=== PATIENT | male | born 1960 | race Hispanic/Latino ===

== ENCOUNTER 2018-12-09 20:59 | Inpatient (IN) | payer SELFPAY ==
--- NOTE | 2018-12-09 21:23 | RAD ---
FExam: Portable chest Provided clinical history: Chest pain and shortness of breath FINDINGS: Cardiac and mediastinal silhouette is within normal limits. No focal consolidation, pleural fluid or pneumothorax evident. Mild prominence of the pulmonary vasculature. IMPRESSION: Prominence of the pulmonary vasculature. Correlate with concerns for congestive failure.
[2018-12-09 21:30] LABS: #Basophils 0.1 thou/uL (0.0-0.2); #Eosinphils 0.3 thou/uL (0.0-0.7); #Lymphocytes 2.2 thou/uL (1.20-3.40); #Monocytes 0.8 thou/uL (0.11-0.59); #Neutrophils 5.4 thou/uL (1.40-6.50); %Basophils 1.4 % (0.0-1.0); %Eosinophils 3.8 % (0.0-10.0); %Lymphocytes 24.6 % (21.0-51.0); %Monocytes 9.1 % (0.0-10.0); %Neutrophils 61.1 % (42.0-75.0); Hemoglobin 13.7 g/dL (14.0-18.0); Mean Corpuscular HGB CONC 34.3 g/dL (32.0-36.0); Mean Corpuscular Hemoglobin 31.2 pg (27.0-31.0); Mean Corpuscular Volume 90.9 fL (78.0-98.0); Mean Platelet Volume 7.7 fL (7.4-10.4); Platelet Count 277 thou/uL (130-400); RBC Distribution Width 12.1 % (11.5-14.5); Red Blood Cell (RBC) Count 4.38 mill/uL (4.70-6.10); White Blood Cell (WBC) Count 8.8 thou/uL (4.8-10.8)
[2018-12-09] MEDS ORDERED: Magnesium 2 GM/50 ML BAG (IN WATER) ONE (21:33)
[2018-12-09] MEDS ORDERED: Diltiazem 125 MG/25 ML ONE (21:33)
[2018-12-09 21:52] LABS: ALT (SGPT) 33 U/L (8-55); AST (SGOT) 30 U/L (5-34); Albumin 4.3 g/dL (3.5-5.0); Alkaline Phosphatase 76 U/L (40-150); Anion Gap 12 mmol/L (10-20); BUN (Urea Nitrogen) 15 mg/dL (8.4-25.7); Bilirubin, Total 1.2 mg/dL (0.2-1.2); Calc. Creatinine Clearance 0 mL/min (70-130); Calcium 9.3 mg/dL (7.8-10.44); Carbon Dioxide 27 mmol/L (22-29); Chloride 104 mmol/L (98-107); Estimated GFR-MDRD 87; Globulin 3.3 g/dL (2.4-3.5); Glucose 98 mg/dL (70-105); Potassium 3.8 mmol/L (3.5-5.1); Protein, Total 7.6 g/dL (6.0-8.3); Sodium 139 mmol/L (136-145)
[2018-12-09 22:42] LABS: CK (CPK) 585 U/L (30-200); Lipase 12 U/L (8-78)
[2018-12-10 01:08] LABS: Troponin I Less than 0.010 ng/mL (< 0.028)
[2018-12-10 02:37] VITALS: BMI 32.1
[2018-12-10] MEDS ORDERED: Ondansetron PF 4 MG/2 ML Vial IVP PRN (04:04)
[2018-12-10] MEDS ORDERED: Ondansetron ODT 4 MG TAB SL PRN (04:04)
[2018-12-10] MEDS ORDERED: Sodium Chloride 0.9% 1,000 ML IV SCH (04:15)
[2018-12-10] MEDS ORDERED: Aspirin 325 MG TAB PO SCH (04:15)
[2018-12-10 04:18] LABS: Troponin I Less than 0.010 ng/mL (< 0.028)
[2018-12-10] MEDS ORDERED: Ibuprofen 200 MG TAB PO PRN (06:14)
[2018-12-10] MEDS ORDERED: Guaifenesin DM 100-10/5 ML UDCUP PO PRN (11:37)
--- NOTE | 2018-12-10 13:47 | HP ---
REASON FOR ADMISSION: Atrial fibrillation/flutter with RVR. HISTORY OF PRESENTING ILLNESS: The patient gives history of working yesterday afternoon and developing palpitations. He has known history of atrial fibrillation and has had prior ablation done 6 years back. He has had recurrence from last 4 years off and on at least 3 times now. 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 He took 80 of sotalol and an extra dose of Lopressor, in spite of which the patient was still having palpitations. He checked his blood pressure. It was high and the monitor was saying that he is in atrial fibrillation. He told his brother who was working with him and finally made it to the emergency room. He has no complaints of chest pain or shortness of breath. He normally lives in [place] and has come to [place] for 6 weeks of work. No complaints of fever, cough, or expectoration. PAST MEDICAL AND SURGICAL HISTORY: History of prior atrial fibrillation with ablation done 6 years back in [place], [place], history of angiogram done 10 years back with a stent placed that again in [place], [place] by Dr. Baum, dyslipidemia, and hypertension. CURRENT MEDICATIONS: The patient takes, 1. Hydrochlorothiazide 12.5 mg p.o. daily. 2. Doxazosin 1 mg p.o. daily. 3. Nifedipine XL 90 mg p.o. at bedtime. 4. Atorvastatin 10 mg p.o. daily. 5. Lopressor 25 mg twice daily. 6. Diclofenac 75 mg daily p.r.n. 7. Clonidine 0.1 mg p.o. twice daily. 8. Losartan 100 mg p.o. at bedtime. 9. He also takes sotalol 80 mg and an extra dose of Lopressor 25 mg on a p.r.n. basis for palpitations. ALLERGIES: NO KNOWN DRUG ALLERGIES. PERSONAL HISTORY: Does not abuse alcohol or drugs. No history of smoking. FAMILY HISTORY: Mother is living and has had history of stroke. Father at the age of 88 years, he has had history of atrial fibrillation. CODE STATUS: Full. SOCIAL HISTORY: Power of regulatory attorney is his brother. The patient is single. REVIEW OF SYSTEMS: CONSTITUTIONAL: Negative for weight loss or gain, ability to conduct usual activities. SKIN: Negative for rash, itching. EYES: Negative for double vision, pain. ENT/MOUTH: Negative for nose bleeding, neck stiffness, pain, tenderness. CARDIOVASCULAR: Negative for palpitations, dyspnea on exertion, orthopnea. RESPIRATORY: Negative for shortness of breath, wheezing, cough, hemoptysis, fever or night sweats. GASTROINTESTINAL: Negative for poor appetite, abdominal pain, heartburn, nausea , vomiting, constipation, or diarrhea. GENITOURINARY: Negative for urgency, frequency, dysuria, nocturia. MUSCULOSKELETAL: Negative for pain, swelling. NEUROLOGIC/PSYCHIATRIC: Negative for anxiety, depression. ALLERGY/IMMUNOLOGIC: Negative for skin rash, bleeding tendency. PHYSICAL EXAMINATION: GENERAL: The patient is a 58-year-old male, who is currently not in any acute distress. VITAL SIGNS: Blood pressure 146/106, pulse 120 per minute, respiratory rate 18 per minute, temperature 97.8 degrees Fahrenheit, saturating 98% on room air. NECK: Supple. No elevated JVD. HEENT: Eyes; extraocular muscles intact. Pupils reacting to light. Oral cavity, mucous membranes are moist. No exudates or congestion. CARDIOVASCULAR SYSTEM: S1, S2 heard. regular rhythm. RESPIRATORY SYSTEM: Air entry, 1+ bilateral. No rales or rhonchi. ABDOMEN: Soft. Bowel sounds heard. No tenderness, rigidity, or guarding. EXTREMITIES: No peripheral edema or calf tenderness. The patient has mild tenderness on the right foot on the lateral aspect and on the mid forefoot on the plantar aspect. Range of motion is normal. Peripheral pulses are good in the right foot. Capillary refill is good. No delay. CENTRAL NERVOUS SYSTEM: No gross focal motor deficits noted. The patient is alert, awake and oriented well. PSYCHIATRIC SYSTEM: The patient's mood is euthymic. No hallucinations or delusions. LABORATORY DATA: Chest x-ray done shows mild pulmonary vascular congestion. Troponin x3 is negative. CK levels 585. BNP 163. Albumin 4.3, BUN 15, creatinine 0.8. Electrolytes stable. Liver enzymes are within normal limits. H and H 13 and 39, platelet count 277, white count of 8.8 with 61% neutrophils. EKG done shows atrial flutter at 123 beats per minute. CLINICAL IMPRESSION AND PLAN: The patient will be admitted to telemetry for atrial flutter with rates going up to 120s. We will continue him on sotalol 80 mg p.o. twice daily, Procardia XL 90 mg daily and Lopressor 50 mg twice daily. He will also be on Lovenox 100 mg q.12 hourly and continue his doxazosin and atorvastatin. His blood pressure will be closely monitored in view of multiple AV conrado blockers that have been instituted now. We will have echo with 2D Doppler for LV function. I have spoken to Dr. Carrero and Dr. Lopez for Cardiology and Electrophysiology consultations. Job ID: [id number] [facility]
[2018-12-10] MEDS: Acetaminophen 325 MG TAB PO PRN (14:17)
--- NOTE | 2018-12-10 15:37 | CON ---
DATE OF CONSULTATION: 12/10/2018 HISTORY: Ced Virgen is a 58-year-old male from [place], [place] with a history of atrial fibrillation radiofrequency ablation 2 years ago. He states that 9 years ago he had a coronary stent placed after an abnormal stress test. He then started having episodes of tachycardia and underwent radiofrequency ablation by Dr. Culver in [place]. He states that he did well for approximately a year, but then 4 to 5 months ago began to notice episodes of rapid heartbeat. These would typically last seconds and then spontaneously resolved. He was given sotalol 80 mg to take on a p.r.n. basis. 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 He had slight left-sided chest pressure. He did not have his sotalol with him at that time. This started at approximately 1 p.m. He then when he got back to his apartment took the sotalol at 7 or 8 p.m. His rapid heart rate continued, and he came to the emergency room. In the emergency room, he was given magnesium sulfate, diltiazem 20 mg IV, and 500 mL of saline. He has continued to be in atrial flutter at this time. He currently is not taking anticoagulation, but he did take Xarelto 20 mg daily in the past; however, this was stopped after his ablation. PAST MEDICAL HISTORY: Hypertension and hypercholesterolemia. No history of diabetes. MEDICATIONS: 1. Sotalol 80 mg p.r.n. 2. Atorvastatin 10 mg daily. 3. Clonidine 0.1 mg b.i.d. 4. Diclofenac 75 mg b.i.d. 5. Cardura 1 mg at bedtime. 6. Hydrochlorothiazide 25 daily. 7. Losartan 100 mg at bedtime. 8. Metoprolol 50 b.i.d. 9. Nifedipine 90 mg b.i.d. ALLERGIES: NONE. OPERATIONS: Coronary artery stent placement and atrial fibrillation radiofrequency ablation. SOCIAL HISTORY: He does not smoke or drink. FAMILY HISTORY: Father had myocardial infarction. REVIEW OF SYSTEMS: Ten-point review of systems is otherwise unremarkable. PHYSICAL EXAMINATION: VITAL SIGNS: Blood pressure of 159/122, pulse of 114. HEENT: PERRL. NECK: Supple. CHEST: Clear. CARDIAC: S1 and S2 normal without any S3, S4, or murmurs. Carotid upstrokes normal without bruits. ABDOMEN: Normal bowel sounds without tenderness or organomegaly. EXTREMITIES: Revealed no clubbing, cyanosis, or edema. NEUROLOGICAL: Grossly intact. SKIN: Warm and dry. IMAGING STUDIES: EKG on admission revealed atrial fibrillation. Subsequent EKG appeared to be more consistent with flutter with a rate of 92 per minute. At the present time, he is in a very regular tachycardia approximately 115 to 120 per minute. LABORATORY DATA: Hemoglobin 13.7, hematocrit 39.8, white count 8800 platelets 277,000. D-dimer less than 0.27. Sodium 139, potassium 3.8, chloride 104, carbon dioxide 27, BUN 15, and creatinine 0.89. BNP 163.1. Troponin I x3 is less than 0.010. IMPRESSION: 1. Recurrence of atrial fibrillation, but it now appears that he is in atrial flutter. 2. History of coronary artery stent placement. 3. Hypertension, poorly controlled. 4. Diabetes. 5. Hypercholesterolemia. 6. Positive family history. PLAN: The patient currently is being anticoagulated with Lovenox 1 mg/kg b.i.d. Echocardiogram will be performed to assess left ventricular function. Electrophysiology will be consulted for consideration of ablation of his atrial flutter. He certainly should be on anticoagulation from this point going forward. Job ID: [id number] [facility]
[2018-12-10 17:02] LABS: #Basophils 0.1 thou/uL (0.0-0.2); #Eosinphils 0.3 thou/uL (0.0-0.7); #Neutrophils 7.3 thou/uL (1.40-6.50); %Eosinophils 3.2 % (0.0-10.0); %Lymphocytes 18.1 % (21.0-51.0); %Monocytes 9.4 % (0.0-10.0); %Neutrophils 68.2 % (42.0-75.0); Hemoglobin 14.1 g/dL (14.0-18.0); Mean Corpuscular HGB CONC 33.8 g/dL (32.0-36.0); Mean Corpuscular Hemoglobin 30.7 pg (27.0-31.0); Mean Platelet Volume 7.7 fL (7.4-10.4); Platelet Count 288 thou/uL (130-400); RBC Distribution Width 12.1 % (11.5-14.5); White Blood Cell (WBC) Count 10.7 thou/uL (4.8-10.8)
[2018-12-10 17:14] LABS: Anion Gap 11 mmol/L (10-20); BUN (Urea Nitrogen) 17 mg/dL (8.4-25.7); Calc. Creatinine Clearance 134 mL/min (70-130); Calcium 9.3 mg/dL (7.8-10.44); Carbon Dioxide 27 mmol/L (22-29); Chloride 104 mmol/L (98-107); Estimated GFR-MDRD Greater than 90; Glucose 105 mg/dL (70-105); Potassium 3.4 mmol/L (3.5-5.1); Sodium 139 mmol/L (136-145)
[2018-12-10] MEDS: Rivaroxaban 10 MG TAB PO SCH (17:20)
[2018-12-10] MEDS ORDERED: NIFEdipine XL 90 MG TAB PO SCH (21:00)
[2018-12-10] MEDS ORDERED: Enoxaparin Sodium 100 MG/ML SYRINGE SC SCH (21:00)
[2018-12-10] MEDS: Losartan 25 MG TAB PO SCH (21:34)
[2018-12-10] MEDS: Famotidine 20 MG TAB PO SCH (21:34)
[2018-12-10] MEDS: Doxazosin Mesylate 1 MG TAB PO SCH (21:34)
[2018-12-10] MEDS: Sotalol HCl 80 MG TAB PO SCH (21:34)
--- NOTE | 2018-12-10 22:16 | CON ---
DATE OF CONSULTATION: 12/10/2018 REASON FOR CONSULTATION: Atrial fibrillation. REFERRING PHYSICIAN: Glenn Carrero MD. HISTORY OF PRESENT ILLNESS: Mr. Virgen is a pleasant 58-year-old gentleman from [place], [place]. He has a history of atrial fibrillation with a radiofrequency ablation approximately 7 years ago with one of my associate, Dr. Culver who is now based out of [place]. He also endorses that 9 years ago, he had a left heart catheterization with a stent placed. Since the time of his ablation, he has been taken off anticoagulation and has been using [id number] method with 80 mg of sotalol for any palpitations and heart racing he has been having. He reports that initially he did well postablation, but over the past of couple months, he began to notice episodes of brief but rapid heart racing. At one point, he woke in the night, noticed heart racing, took a dose of metoprolol, went back to bed with full resolution of the heart racing. Prior to admitting to the hospital, he was working in [place] and was noticing some heart racing, palpitations with some associated left-sided chest pressure. He did not have the sotalol with him, but when he got home, to his temporary lodging, he took a dose of sotalol around 7 or eight o'clock at night, but continued to have heart racing and palpitations. He attempted to take his blood pressure with his home cuff, which gave him an error message and made him concerned, so he went to the emergency room where he was found to be in atrial flutter with RVR. He was given IV diltiazem, which slowed him, but unsure if it chemically converted him or not. REVIEW OF SYSTEMS: A 12-point review of systems was conducted, it was negative except that listed above in HPI. PAST MEDICAL HISTORY: 1. Hypertension. 2. Coronary artery disease with prior stent placement. 3. Atrial fibrillation, status post prior PVI approximately 7 years ago by patient recollection, performed by Dr. Culver. ALLERGIES: NONE. HOME MEDICATIONS: Include: 1. Diclofenac 75 mg p.o. b.i.d. 2. Toprol-XL 50 mg p.o. b.i.d. 3. Hydrochlorothiazide 12.5 mg daily. 4. Clonidine 0.1 mg p.o. b.i.d. 5. Nifedipine 90 mg p.o. b.i.d. 6. Cardura 1 mg p.o. at bedtime. 7. Sotalol 80 mg p.o. p.r.n. 8. Lipitor 10 mg p.o. daily. 9. Cozaar 100 mg p.o. at bedtime. SOCIAL HISTORY: Negative for tobacco, alcohol, or illicit drug use. FAMILY HISTORY: Positive for myocardial infarction. PHYSICAL EXAMINATION: VITAL SIGNS: Temperature 98.4, pulse 116, blood pressure 148/119, respirations 16, oxygen is 98% on room air. GENERAL: The patient is alert and oriented. Speech is clear. Affect is appropriate. He is in no apparent distress. NECK: Supple without jugular venous distention. HEART: Heart rate is rapid and regular. PMI is nondisplaced. LUNGS: Clear to auscultation bilaterally. ABDOMEN: Soft, nontender without palpable masses. Hepatojugular reflux is negative. EXTREMITIES: Warm and dry to touch without clubbing, cyanosis, or edema. NEUROLOGIC: Grossly intact and nonfocal. Gait was not assessed. LABORATORY DATA: Hematology was unremarkable. Chemistry was reviewed as unremarkable. BNP 163. Serial troponins were negative, creatinine is 0.89. Electrolytes were all within normal limits as well as LFTs. Telemetry and EKG were all personally reviewed and show atypical atrial flutter and atrial fibrillation. IMPRESSION: 1. Paroxysmal atypical atrial flutter/atrial fibrillation with palpitations. 2. History of coronary artery disease with prior stenting. PLAN AND RECOMMENDATIONS: Agree with anticoagulation. Recommend transitioning him back to Xarelto 20 mg daily based on his kidney function. My recommendation is for a NEPTALI-guided cardioversion tomorrow, possibly with Cardiology. Ultimately, Mr. Virgen will require either constant antiarrhythmia suppression with sotalol or ultimately a redo ablation, which is my recommendation. He would like this arranged while he is working in the area. He understands that he would need to take some time off from work following his ablation to allow for recovery. For this hospitalization, recommend just NEPTALI-guided cardioversion and then my office will work to arrange outpatient ablation potentially next week. Consider reloading on sotalol following the NEPTALI cardioversion, if unable to perform ablation next week to prevent any further recurrences before he can be ablated. Thank you for allowing us to participate in the care of this patient. We will keep him n.p.o. after midnight and he voices understanding to a NEPTALI-guided cardioversion and is willing to proceed. Job ID: [id number]
[2018-12-11 05:34] LABS: #Basophils 0.1 thou/uL (0.0-0.2); #Eosinphils 0.3 thou/uL (0.0-0.7); #Neutrophils 7.3 thou/uL (1.40-6.50); %Basophils 0.6 % (0.0-1.0); %Eosinophils 2.8 % (0.0-10.0); %Lymphocytes 18.6 % (21.0-51.0); %Neutrophils 69.1 % (42.0-75.0); Hemoglobin 14.5 g/dL (14.0-18.0); Mean Corpuscular HGB CONC 34.2 g/dL (32.0-36.0); Mean Corpuscular Hemoglobin 31.1 pg (27.0-31.0); Mean Corpuscular Volume 90.9 fL (78.0-98.0); Mean Platelet Volume 7.9 fL (7.4-10.4); Platelet Count 278 thou/uL (130-400); RBC Distribution Width 12.2 % (11.5-14.5); Red Blood Cell (RBC) Count 4.65 mill/uL (4.70-6.10); White Blood Cell (WBC) Count 10.6 thou/uL (4.8-10.8)
[2018-12-11 05:47] LABS: Anion Gap 12 mmol/L (10-20); BUN (Urea Nitrogen) 15 mg/dL (8.4-25.7); Calc. Creatinine Clearance 131 mL/min (70-130); Calcium 9.1 mg/dL (7.8-10.44); Carbon Dioxide 28 mmol/L (22-29); Chloride 103 mmol/L (98-107); Estimated GFR-MDRD Greater than 90; Glucose 98 mg/dL (70-105); Potassium 3.6 mmol/L (3.5-5.1); Sodium 139 mmol/L (136-145)
[2018-12-11] MEDS: NIFEdipine XL 90 MG TAB PO SCH (06:33)
[2018-12-11] MEDS: Famotidine 20 MG TAB PO SCH ×2 (06:33→20:29)
[2018-12-11] MEDS: Sotalol HCl 80 MG TAB PO SCH ×2 (06:34→20:29)
[2018-12-11] MEDS ORDERED: Atorvastatin Calcium 10 MG TAB PO SCH (09:00)
--- NOTE | 2018-12-11 09:03 | PDOC.CTH ---
Cardiology Progress Note - Subjective EP PROGRESS NOTE:12/11/18 Seen as follow up for atypical atrial flutter. NPO for NEPTALI/ CV later today with Dr Rizo. Feels well. No new cardiac concerns or complaints today. - Objective Vital Signs Temp Pulse Resp BP BP Pulse Ox 12/11/18 08:00 98.6 F 114 H 16 116/92 H 98 12/11/18 06:34 114 H 141/123 H 12/11/18 06:33 114 H 141/123 H 12/11/18 04:00 98.1 F 114 H 18 141/123 H 96 12/11/18 00:00 98.0 F 118 H 18 140/115 H 97 12/10/18 21:34 115 H 170/126 H Weight 223 lb 11.2 oz 12/10/18 12/11/18 12/12/18 06:59 06:59 06:59 Intake Total 1014 Output Total 1350 400 Balance -336 -400 - Physical Examination General/Neuro: alert & oriented x3, NAD Neck: carotid US brisk, no JVD present Lungs: CTA, unlabored respirations Heart: PMI normal, RRR Abdomen: NT/ND, soft - Telemetry Telemetry Rhythm: atyp. atrial flutter - Labs Result Diagrams: 12/11/18 05:01 12/11/18 05:01 Troponin/CKMB Troponin I Less than 0.010 ng/mL (< 0.028) 12/10/18 03:30 - Assessment/Plan 1. Paroxysmal atypical atrial flutter/atrial fibrillation with palpitations. -NEPTALI guided CV later today - start sotalol 80mg PO BID following CV if no thrombus found on NEPTALI. Has taken this rx before without issue. Possibly home tomorrow. - Scheduled for redo PVI on 12/19 as OP. 2. History of coronary artery disease with prior stenting. 3. CHADS2-VASC: 2 ( HTN,CAD) -Continue xarelto 20mg PO QD
[2018-12-11 10:36] LABS: Cardiac Risk 4.1 (Less than 4.5)
--- NOTE | 2018-12-11 12:46 | PDOC.PN ---
- Subjective Encounter Start Date: 12/11/18 Encounter Start Time: 10:15 Subjective: no chest pain or sob -: is sitting in chair, is npo for cardioversion/NEPTALI - Objective Resuscitation Status - Order Detail: 12/10/18 11:33 Resuscitation Status Routine Resuscitation Status: FULL: Full Resuscitation MAR Reviewed: Yes Vital Signs & Weight: Vital Signs (12 hours) Temp Pulse Resp BP BP Pulse Ox 12/11/18 08:00 98.6 F 114 H 16 116/92 H 98 12/11/18 06:34 114 H 141/123 H 12/11/18 06:33 114 H 141/123 H 12/11/18 04:00 98.1 F 114 H 18 141/123 H 96 Weight Weight 223 lb 11.2 oz I&O: 12/10/18 12/11/18 12/12/18 06:59 06:59 06:59 Intake Total 1014 Output Total 1350 400 Balance -336 -400 Result Diagrams: 12/11/18 05:01 12/11/18 05:01 Phys Exam - Physical Examination HEENT: PERRLA, moist MMs Neck: no JVD, supple Respiratory: no wheezing, no rales Cardiovascular: no significant murmur, no rub Gastrointestinal: soft, non-tender, positive bowel sounds Musculoskeletal: no edema, pulses present Neurological: non-focal, moves all 4 limbs Psychiatric: normal affect, A&O x 3 Dx/Plan (1) Atrial fibrillation/flutter Code(s): ABM0508 - Status: Acute (2) HTN (hypertension) Code(s): I10 - ESSENTIAL (PRIMARY) HYPERTENSION Status: Chronic Qualifiers: Hypertension type: essential hypertension Qualified Code(s): I10 - Essential (primary) hypertension (3) CAD (coronary artery disease) Code(s): I25.10 - ATHSCL HEART DISEASE OF [place] CORONARY ARTERY W/O ANG PCTRS Status: Chronic Qualifiers: Coronary Disease-Associated Artery/Lesion type: [place] artery [place] vs. transplanted heart: [place] heart Comment: stent >10 yrs back [place] (4) Dyslipidemia Code(s): E78.5 - HYPERLIPIDEMIA, UNSPECIFIED Status: Chronic - Plan is on sotalol, lopressor, procardia xl and xarelto -: continue lipitor and doxazosin -: hemostable -: for NEPTALI with cardioversion today -: has been scheduled for EP studies on of this month as outpt * . Review of Systems - Medications/Allergies Allergies/Adverse Reactions: Allergies Allergy/AdvReac Type Severity Reaction Status Date / Time No Known Allergies Allergy Verified 12/10/18 02:23 Medications: Current Medications Acetaminophen (Tylenol) 650 mg PO Q4H PRN PRN Reason: Headache/Fever/Mild Pain (1-3) Last Admin: 12/10/18 14:17 Dose: 650 mg Atorvastatin Calcium (Lipitor) 10 mg PO DAILY [facility] Last Admin: 12/11/18 06:33 Dose: 10 mg Doxazosin Mesylate (Cardura) 1 mg PO HS [facility] Last Admin: 12/10/18 21:34 Dose: 1 mg Famotidine (Pepcid) 20 mg PO BID [facility] Last Admin: 12/11/18 06:33 Dose: 20 mg Guaifenesin/Dextromethorphan (Robitussin Dm) 15 ml PO Q4H PRN PRN Reason: Cough Losartan Potassium (Cozaar) 100 mg PO HS [facility] Last Admin: 12/10/18 21:34 Dose: 100 mg Metoprolol Succinate (Toprol Xl) 50 mg PO BID [facility] Last Admin: 12/11/18 06:33 Dose: 50 mg Miscellaneous Medication (Pharmacy To Dose) 1 each IVPB PRN PRN PRN Reason: . Nifedipine (Procardia Xl) 90 mg PO DAILY [facility] Last Admin: 12/11/18 06:33 Dose: 90 mg Rivaroxaban (Xarelto) 20 mg PO 1800 [facility] Last Admin: 12/10/18 17:20 Dose: 20 mg Sotalol HCl (Betapace) 80 mg PO BID [facility] Last Admin: 12/11/18 06:34 Dose: 80 mg
[2018-12-11] MEDS ORDERED: PROPOFOL 200 MG/20 ML VIAL ONE (15:46)
[2018-12-11] MEDS ORDERED: Lidocaine 1% PF 5 ML VIAL ONE (15:46)
[2018-12-11] MEDS ORDERED: PHENYLEPHRINE-NS 100 MCG/ML 10 ML SYRINGE ONE (15:46)
[2018-12-11] MEDS: Rivaroxaban 10 MG TAB PO SCH (17:12)
--- NOTE | 2018-12-11 18:20 | OP ---
DATE OF PROCEDURE: 12/11/18 SURGEON: Glenn Carrero M.D. PROCEDURE: Direct current cardioversion. The patient remained sedated after transesophageal echo revealed no evidence of intracardiac thrombus . He was in atypical atrial flutter. With 50 joules, he returned to sinus bradycardia. Patient tolera mayela the procedure well.
[2018-12-11] MEDS: Doxazosin Mesylate 1 MG TAB PO SCH (20:28)
[2018-12-11] MEDS: Losartan 25 MG TAB PO SCH (20:29)
[2018-12-11] MEDS: Acetaminophen 325 MG TAB PO PRN (20:37)
[2018-12-12 07:51] VITALS: TEMP 98.1
--- NOTE | 2018-12-12 08:40 | OP ---
DATE OF PROCEDURE: 12/11/2018 PROCEDURE PERFORMED: Transesophageal echocardiogram. INDICATION FOR PROCEDURE: This is a 58-year-old gentleman with typical atrial flutter. DESCRIPTION OF PROCEDURE: The patient was taken to the PACU. The patient was sedated by anesthesiology. A transesophageal probe was placed into the distal esophagus and stomach. Echocardiographic images were obtained. The transesophageal probe was removed. FINDINGS: 1. Normal left ventricular systolic function. 2. Left atrial enlargement. 3. Normal mitral aortic valve. 4. Mild mitral regurgitation. 5. Mild tricuspid regurgitation. 6. No thrombus noted in the left atrial or left atrial appendage. 7. Atherosclerotic debris in the descending aorta. IMPRESSION: No formed thrombus in the left atrial left atrial appendage. Job ID: [id number]
[2018-12-12] MEDS ORDERED: Aspirin 81 mg Enteric Coated Tablet PO SCH (09:00)
[2018-12-12] MEDS: Famotidine 20 MG TAB PO SCH (09:10)
[2018-12-12] MEDS: NIFEdipine XL 90 MG TAB PO SCH (09:11)
[2018-12-12] MEDS: Sotalol HCl 80 MG TAB PO SCH (09:11)
--- NOTE | 2018-12-12 10:50 | PDOC.CTH ---
Cardiology Progress Note - Subjective EP PROGRESS NOTE:12/12/18 Seen as follow up for atypical atrial flutter. Had NEPTALI/ CV later 12/11. Feels well today. No new cardiac concerns or complaints. Going home today - Objective Vital Signs Temp Pulse Resp BP Pulse Ox 12/12/18 09:11 55 L 12/12/18 08:00 98 12/12/18 07:50 98.1 F 55 L 18 153/88 H 98 12/12/18 04:00 97.7 F 54 L 18 124/87 99 12/12/18 00:00 97.6 F 53 L 18 101/70 97 Weight 223 lb 11.2 oz 12/11/18 12/12/18 12/13/18 06:59 06:59 06:59 Intake Total 7276 679 5817 Output Total 1350 400 Balance -890 729 5661 - Physical Examination General/Neuro: alert & oriented x3, NAD Neck: carotid US brisk, no JVD present Lungs: CTA, unlabored respirations Heart: PMI normal, RRR Abdomen: NT/ND, soft - Telemetry Telemetry Rhythm: SB/SR - Labs Result Diagrams: 12/11/18 05:01 12/11/18 05:01 Troponin/CKMB Troponin I Less than 0.010 ng/mL (< 0.028) 12/10/18 03:30 - Assessment/Plan 1. Paroxysmal atypical atrial flutter/atrial fibrillation with palpitations. -NEPTALI guided CV 12/11 - started sotalol 80mg PO BID following CV. Has taken this rx/dose before without issue. - 4 AM EKG post sotalol QTc stable - Scheduled for redo PVI on 12/19 as OP. 2. History of coronary artery disease with prior stenting. 3. CHADS2-VASC: 2 ( HTN,CAD) -Continue xarelto 20mg PO QD Redo PVI next week at OP. OK to DC home. May return to work until procedure on .
--- NOTE | 2018-12-12 11:10 | PDOC.PN ---
- Subjective Encounter Start Date: 12/12/18 Encounter Start Time: 07:30 Subjective: is sitting in chair, feels good - Objective Resuscitation Status - Order Detail: 12/10/18 11:33 Resuscitation Status Routine Resuscitation Status: FULL: Full Resuscitation MAR Reviewed: Yes Vital Signs & Weight: Vital Signs (12 hours) Temp Pulse Resp BP Pulse Ox 12/12/18 09:11 55 L 12/12/18 08:00 98 12/12/18 07:50 98.1 F 55 L 18 153/88 H 98 12/12/18 04:00 97.7 F 54 L 18 124/87 99 12/12/18 00:00 97.6 F 53 L 18 101/70 97 Weight Weight 223 lb 11.2 oz I&O: 12/11/18 12/12/18 12/13/18 06:59 06:59 06:59 Intake Total 3170 866 5563 Output Total 1350 400 Balance -922 735 8066 Result Diagrams: 12/11/18 05:01 12/11/18 05:01 Phys Exam - Physical Examination HEENT: PERRLA, moist MMs Neck: no JVD, supple Respiratory: no wheezing, no rales Cardiovascular: RRR, no significant murmur Gastrointestinal: soft, non-tender, positive bowel sounds Musculoskeletal: no edema, pulses present Neurological: non-focal, moves all 4 limbs Psychiatric: normal affect, A&O x 3 Dx/Plan (1) Atrial fibrillation/flutter Code(s): OWD7963 - Status: Resolved Comment: s/p cardioversion in sinus (2) HTN (hypertension) Code(s): I10 - ESSENTIAL (PRIMARY) HYPERTENSION Status: Chronic Qualifiers: Hypertension type: essential hypertension Qualified Code(s): I10 - Essential (primary) hypertension (3) CAD (coronary artery disease) Code(s): I25.10 - ATHSCL HEART DISEASE OF [place] CORONARY ARTERY W/O ANG PCTRS Status: Chronic Qualifiers: Coronary Disease-Associated Artery/Lesion type: [place] artery [place] vs. transplanted heart: [place] heart Comment: stent >10 yrs back in [place] (4) Dyslipidemia Code(s): E78.5 - HYPERLIPIDEMIA, UNSPECIFIED Status: Chronic - Plan hemostable -: hr around 50-60 on current meds -: dc pt home -: to f/u with on .
[2018-12-12 11:22] VITALS: BP 104/74
[2018-12-12] MEDS: Rivaroxaban 10 MG TAB PO SCH (14:03)
--- NOTE | 2018-12-12 14:06 | DIS ---
DATE OF ADMISSION: 12/10/2018 DATE OF DISCHARGE: 12/12/2018 DISCHARGE DISPOSITION: To home. PRIMARY DISCHARGE DIAGNOSIS: Atrial flutter, status post cardioversion, in sinus rhythm. SECONDARY DISCHARGE DIAGNOSES: History of coronary artery disease with prior stent, hypertension, dyslipidemia. PROCEDURES DONE DURING HOSPITALIZATION: Chest x-ray done, showed mild pulmonary vascular congestion. The patient had direct current cardioversion with 50 joules done for atypical atrial flutter with the patient converting to sinus bradycardia. Transesophageal echo done, showed normal LV systolic function. No thrombus was seen in the left atrial or left atrial appendage. Echo with 2D Doppler showed EF of 50% to 55%. H and H of 14 and 42, platelet count 278, MCV is 90. Total cholesterol 169, triglycerides 116, LDL 105, HDL 41. BUN 15, creatinine 0.8. Troponin x3 is negative. BNP 163. DISCHARGE MEDICATIONS: 1. Xarelto 20 mg p.o. daily. 2. Sotalol 80 mg p.o. twice daily. 3. Procardia XL 90 mg p.o. daily. 4. Toprol-XL 25 mg twice daily. 5. Lipitor 20 mg p.o. q.h.s. 6. Aspirin 81 mg p.o. daily. 7. Losartan 100 mg p.o. q.h.s. 8. Cardura 1 mg p.o. q.h.s. ALLERGIES: NO KNOWN DRUG ALLERGIES. DISCHARGE PLAN: The patient to follow up with Dr. Jessica Macias on the for EP studies and primary care physician in 2 weeks. BRIEF COURSE DURING HOSPITALIZATION: The patient initially came in with complaints of palpitation. He has a known history of atrial fibrillation and was found to be in atrial flutter on arrival here. The patient has had consultation with Dr. Carrero for Cardiology and Dr. Jessica Macias for Electrophysiology. He has had prior EP studies with ablation done more than 6 years back, but has had recurrence from last 4 years now. He has had electrical cardioversion done by Dr. Carrero. Echo with both transdermal and transesophageal echo has not revealed any thrombus. He has good ejection fraction. His medications were optimized to include sotalol 80 mg twice daily, Toprol-XL 25 mg twice daily, and Procardia XL 90 mg daily. He is hemodynamically stable and will be shortly discharged home. He has been cleared by Dr. Carrero for discharge. The patient has a followup appointment to see Dr. Jessica Macias for further EP studies on the 11 of this month. Please see a face-to- face documentation for the day of discharge on [employer]. Job ID: [id number] [email or web address]
[2018-12-12] MEDS ORDERED: Atorvastatin Calcium 20 MG TAB PO SCH (21:00)
--- NOTE | 2018-12-12 21:26 | EKG ---
Test Reason : Blood Pressure : / mmHG Vent. Rate : 052 BPM Atrial Rate : 052 BPM P-R Int : 184 ms QRS Dur : 118 ms QT Int : 462 ms P-R-T Axes : 065 -25 -10 degrees QTc Int : 429 ms Sinus bradycardia Borderline ECG When compared with ECG of 09-DEC-2018 23:24, (Unconfirmed) Sinus rhythm has replaced Atrial flutter Vent. rate has decreased BY 40 BPM QRS duration has increased Inverted T waves have replaced nonspecific T wave abnormality in Inferior leads Confirmed by MARIA ELENA PULIDO, . SJoann ([id number]) on 12/12/2018 9:26:26 PM Referred By: [facility] Confirmed By:DR. Jane ARREDONDO MD
== END 2018-12-12 14:53 | disposition home or self-care (01) | DRG 310 ==
LOC: ERS 20:59 → 2SE 12-10 00:50
PROVIDERS: ADMIT Family Medicine; ATTEND Family Medicine
PROC: B24BZZ4 Ultrasonography of Heart with Aorta, Transesophageal (ICD-10-PCS; principal; 2018-12-11)
PROC: 5A2204Z Restoration of Cardiac Rhythm, Single (ICD-10-PCS; 2018-12-11)
DX: I48.92 Unspecified atrial flutter (principal); I10 Essential (primary) hypertension; E78.00 Pure hypercholesterolemia, unspecified; I25.10 Atherosclerotic heart disease of native coronary artery without angina pectoris; I48.0 Paroxysmal atrial fibrillation; Z79.899 Other long term (current) drug therapy; Z79.01 Long term (current) use of anticoagulants; Z95.5 Presence of coronary angioplasty implant and graft
CPT/HCPCS: 36415; 71045; 80048; 80053; 80061; 82550; 83690; 83880; 84484; 85025; 85379; 90471; 90732; 92960; 93005; 93010; 93306; 93312; 96374; 96375; G0009; J2001; J2704; J3475